=== PATIENT | male | born 1985 | race Caucasian/White ===

== ENCOUNTER 2017-05-26 20:30 | Emergency (ER) | payer SELFPAY ==
[~2017-05-26] VITALS: Ht 175.3 cm; Wt 97.0 kg
[2017-05-26 20:33] VITALS: BP 127/83; PULSE 88; RESP 16; TEMP 98.3; O2SAT 98
[2017-05-26 22:57] VITALS: BP 122/88; PULSE 83; RESP 18; O2SAT 100
[2017-05-26] MEDS ORDERED: SODIUM CHLOR 0.9% 1000 ML INJ 1,000 ML IV ONE (23:15)
[2017-05-26] MEDS ORDERED: ONDANSETRON HCL 4 MG/2 ML VIAL IV ONE (23:15)
[2017-05-26 23:45] LABS: AUTOMATED NEUTROPHIL # 4.1 TH/MM3 (1.8-7.7); BASOPHIL # 0.1 TH/MM3 (0-0.2); BASOPHIL % 1.2 % (0.0-2.0); EOSINOPHIL # 0.2 TH/MM3 (0-0.4); EOSINOPHIL % 2.1 % (0.0-4.0); HEMATOCRIT 48.9 % (39.0-51.0); HEMO FLAGS DIFF FINAL; LYMPH % 43.7 % (9.0-44.0); LYMPHOCYTE # 3.8 TH/MM3 (1.0-4.8); MEAN CELL VOLUME 83.6 FL (80.0-100.0); MEAN CORPUSCULAR HEMOGLOBIN 28.1 PG (27.0-34.0); MEAN CORPUSCULAR HGB CONC 33.6 % (32.0-36.0); MONO % 5.6 % (0.0-8.0); NEUT % 47.4 % (16.0-70.0); PLATELET COUNT 221 TH/MM3 (150-450); RED BLOOD COUNT 5.86 MIL/MM3 (4.50-5.90); RED CELL DISTRIBUTION WIDTH 13.3 % (11.6-17.2); WHITE BLOOD COUNT 8.6 TH/MM3 (4.0-11.0)
--- NOTE | 2017-05-26 23:52 | PD ---
HPI Chief Complaint: GI Complaint Time Seen by Provider: 22:56 Travel History International Travel<30 days: No Contact w/Intl Traveler<30days: No Traveled to known affect area: No History of Present Illness HPI The patient is a 31 year old male who presents to the [facility] emergency department with a history of 8 days of loose stool associated with blood in his stool. The patient reports that he has lower abdominal cramping. He reports that the pain is worse with moving his bowels. He reports that he has been eating less food because of this. He reports having nausea with occasional dry heaves. He reports that he previously weighed 225 pounds and now is down to 219 pounds. He denies ever having symptoms like this previously. He reports that he is moving his bowels approximately 5-6 times per day. He denies having any digestion or heartburn associated with this. He reports that because of this pain he has been taking ibuprofen 200 mg tablets 2 tablets 4 times a day. He denies taking any other [id number] medications prior to the onset of the symptoms. The patient reports that he does have a history of problems with constipation. He denies having any family history of colon cancer or bowel disease. He reports that over the last 2 days he began to have dizziness with lightheaded sensation. Otherwise on review of systems, he denies having any recent fevers, cough, congestion, neck pain, chest pain, shortness of breath, urinary symptoms, or other neurologic symptoms. The patient denies any antibiotic use in the last 3 months. The patient denies having any known sick contacts or unusual food intake. The patient denies any foreign travel or recent camping. The patient denies having anal sex or using any toys anally. COUNT INCLUDES THE [facility] Past Medical History Narrative Medical The patient's past medical history is significant for tuberculosis found to be in an inactive state in [id number] treated with 9 months of medication. Diminished Hearing: No Respiratory: Yes (TB) Immunizations Current: Yes Past Surgical History Narrative Surgical The patient's past surgical history is reportedly none. Surgical History: No Previous Surgery Social History Alcohol Use: No Tobacco Use: Yes (1PPD) Substance Use: No Allergies-Medications (Allergen,Severity, Reaction): Coded Allergies: No Known Allergies (Unverified , 05/26/17) Reported Meds & Prescriptions Reported Meds & Active Scripts Active Flagyl (Metronidazole) 500 Mg Tab 500 Mg PO TID 7 Days Ciprofloxacin (Ciprofloxacin HCl) 500 Mg Tab 500 Mg PO BID Review of Systems Except as stated in HPI: all other systems reviewed are Neg General / Constitutional: No: Fever Eyes: No: Visual changes HENT: No: Headaches Cardiovascular: No: Chest Pain or Discomfort Respiratory: No: Shortness of Breath Gastrointestinal: Positive: Nausea, Vomiting, Diarrhea, Abdominal Pain, Hematochezia, Changes in Bowel Habits, Loss of Appetite, No: Hematemesis, Indigestion Genitourinary: No: Dysuria Musculoskeletal: No: Pain Skin: No Rash Neurologic: No: Weakness Psychiatric: No: Depression Endocrine: No: Polydipsia Hematologic/Lymphatic: No: Easy Bruising Physical Exam Narrative General: The patient is a well-developed well-nourished male in no acute distress Head and Neck exam: Head is normocephalic atraumatic. Eyes: EOMI, pupils are equal round and reactive to light. Nose: Midline septum with pink mucous membranes Mouth: Dentition unremarkable. Moist mucus membranes. Posterior oropharynx is not erythematous. No tonsillar hypertrophy. Uvula midline. Airway patent. Neck: No palpable lymphadenopathy. No nuchal rigidity. No thyromegaly. Cardiovascular: Regular rate and rhythm without murmurs, gallops, or rubs. Lungs: Clear to auscultation bilaterally. No wheezes, rhonchi, or rales. Abdomen: Soft, with tenderness on palpation overlying the suprapubic area and bilateral lower quadrants of the abdomen, left compared to the right. No specific point tenderness on palpation over McBurney's point. No guarding, rebound, or rigidity. Negative Gutierrez's sign. Normal bowel sounds are audible. Extremities: No clubbing, cyanosis, or edema. 2+ pulses in all 4 extremities. No calf tenderness on palpation. Back: No spinous process tenderness to palpation. No costovertebral angle tenderness to palpation. Neurologic Exam: Grossly nonfocal. Skin Exam: No rash noted. Intact skin that is warm and dry. RECTAL EXAM: No masses or tenderness, stool is brown. The patient's stool was Hemoccult negative. No anal fissures or hemorrhoids are visualized. Data Data Last Documented VS Vital Signs Date Time Temp Pulse Resp B/P (MAP) Pulse Ox O2 Delivery O2 Flow Rate FiO2 10/24/17 22:57 83 18 122/88 (99) 100 Room Air 05/26/17 20:33 98.3 Orders Orders Complete Blood Count With Diff (05/26/17 23:06) Comprehensive Metabolic Panel (05/26/17 23:06) Prothrombin Time / Inr (Pt) (05/26/17 23:06) Act Partial Throm Time (Ptt) (05/26/17 23:06) Lipase (05/26/17 23:06) Urinalysis - C+S If Indicated (05/26/17 23:06) Westergren Sedimentation Rate (05/26/17 23:06) Magnesium (Mg) (05/26/17 23:06) Enteric Path (Stool) (05/26/17 23:06) C Diff Toxin Pcr (05/26/17 23:06) Ct Abd/Pel W Iv Contrast(Rout) (05/26/17 23:06) Iv Access Insert/Monitor (05/26/17 23:06) Ecg Monitoring (05/26/17 23:) Oximetry (05/26/17 23:06) Type And Screen (05/26/17 23:06) Stool Wbc (Leukocytes) (05/26/17 23:06) Sodium Chlor 0.9% 1000 Ml Inj (Ns 1000 M (05/26/17 23:15) Ondansetron Inj (Zofran Inj) (05/26/17 23:15) Iohexol 350 Inj (Omnipaque 350 Inj) (05/27/17 00:18) Metronidazole (Flagyl) (05/27/17 01:15) Ed Discharge Order (05/27/17 01:33) Labs Laboratory Tests Test 05/26/17 23:15 05/27/17 00:00 White Blood Count 8.6 TH/MM3 Red Blood Count 5.86 MIL/MM3 Hemoglobin 16.4 GM/DL Hematocrit 48.9 % Mean Corpuscular Volume 83.6 FL Mean Corpuscular Hemoglobin 28.1 PG Mean Corpuscular Hemoglobin Concent 33.6 % Red Cell Distribution Width 13.3 % Platelet Count 221 TH/MM3 Mean Platelet Volume 8.2 FL Neutrophils (%) (Auto) 47.4 % Lymphocytes (%) (Auto) 43.7 % Monocytes (%) (Auto) 5.6 % Eosinophils (%) (Auto) 2.1 % Basophils (%) (Auto) 1.2 % Neutrophils # (Auto) 4.1 TH/MM3 Lymphocytes # (Auto) 3.8 TH/MM3 Monocytes # (Auto) 0.5 TH/MM3 Eosinophils # (Auto) 0.2 TH/MM3 Basophils # (Auto) 0.1 TH/MM3 CBC Comment DIFF FINAL Differential Comment Erythrocyte Sedimentation Rate 1 mm/hr Prothrombin Time 10.0 SEC Prothromb Time International Ratio 0.9 RATIO Activated Partial Thromboplast Time 23.0 SEC Blood Urea Nitrogen 13 MG/DL Creatinine 0.87 MG/DL Random Glucose 83 MG/DL Total Protein 6.3 GM/DL Albumin 3.4 GM/DL Calcium Level 8.7 MG/DL Magnesium Level 2.0 MG/DL Alkaline Phosphatase 74 U/L Aspartate Amino Transf (AST/SGOT) 14 U/L Alanine Aminotransferase (ALT/SGPT) 25 U/L Total Bilirubin 0.3 MG/DL Sodium Level 140 MEQ/L Potassium Level 4.2 MEQ/L Chloride Level 106 MEQ/L Carbon Dioxide Level 27.8 MEQ/L Anion Gap 6 MEQ/L Estimat Glomerular Filtration Rate 102 ML/MIN Lipase 105 U/L Urine Color LIGHT-YELLOW Urine Turbidity CLEAR Urine pH 5.0 Urine Specific [place] 1.014 Urine Protein NEG mg/dL Urine Glucose (UA) NEG mg/dL Urine Ketones NEG mg/dL Urine Occult Blood NEG Urine Nitrite NEG Urine Bilirubin NEG Urine Urobilinogen LESS THAN 2.0 MG/DL Urine Leukocyte Esterase NEG Urine WBC 1 /hpf Urine Mucus FEW /lpf Microscopic Urinalysis Comment CULT NOT INDICATED MDM Medical Decision Making Medical Screen Exam Complete: Yes Emergency Medical Condition: Yes Medical Record Reviewed: Yes Interpretation(s) Last Impressions Abdomen/Pelvis CT 05/26/17 5642 Signed Impressions: Service Date/Time: Saturday, May 27, 2017 00:12 - CONCLUSION: 1. Eccentric wall thickening of the rectum. Digital rectal exam recommended. 2. The remainder the abdomen/pelvis is otherwise unremarkable. Samuel Oliveira MD Differential Diagnosis Colitis, versus bacterial gastroenteritis, versus inflammatory bowel disease, versus hemorrhoid, versus anal fissure Narrative Course During the course of the patients emergency department visit, the patients history, examination, and differential diagnosis were reviewed with the patient. The patient was placed on a organizational effectiveness consultant with oximetry and frequent blood pressure monitoring. The patient had IV access obtained and blood work sent for analysis. The patient was initially provided normal saline 1 L IV fluid bolus, Zofran 4 mg IV. The patient was given Flagyl 500 mg by mouth after CT scan revealed evidence of rectal inflammation The patients laboratory studies were reviewed and remarkable for CBC within normal limits, sedimentation rate 1. CMP is remarkable for an AST of 14, total protein 6.3, lipase 105, PT 10, PTT 23, urinalysis unremarkable. Radiology studies were reviewed and remarkable for a CT scan of the abdomen pelvis that shows a central wall thickening of the rectum. The remainder of the abdomen and pelvis was otherwise unremarkable. The patient will be discharged home with a prescription for antibiotics to include Cipro and Flagyl. The patient was given the name of the monogram technician on-call for follow-up, . The patient is resting comfortably and feels better, is alert and in no distress. The patients results and examination findings were discussed with the patient. The repeat examination is unremarkable and benign. The history, exam, diagnostic testing, and current condition do not suggest any significant pathology to warrant further testing, continued ED treatment, admission, or surgical evaluation at this point. The vital signs have been stable. The patient does not have uncontrollable pain, intractable vomiting, or other significant symptoms. The patient's condition is stable and appropriate for discharge. The patient will pursue further outpatient evaluation with a primary care physician or other designated or consulting physician as indicated in the discharge instructions. The patient expressed understanding and was agreeable with this plan. [facility] Point of Care Internal Pos. & Neg. Controls: Passed Fecal Specimen Occult Blood: Negative Diagnosis Primary Impression: Prostatitis Qualified Codes: N41.0 - Acute prostatitis Referrals: Juan Pablo Moreira MD 2 weeks Patient Instructions: General Instructions, Prostatitis (ED) Med/Other Pt SpecificInfo: Prescription(s) given Scripts Metronidazole (Flagyl) 500 Mg Tab 500 MG PO TID for Infection for 7 Days, TAB 0 Refills Prov: Randa Altamirano MD 05/27/17 Ciprofloxacin (Ciprofloxacin) 500 Mg Tab 500 MG PO BID for Infection, #20 TAB 0 Refills Prov: Randa Altamirano MD 05/27/17 Disposition: 01 DISCHARGE HOME Condition: Stable Randa Altamirano MD May 26, 2017 23:52
[2017-05-26 23:56] LABS: INTERNATIONAL NORMALIZED RATIO 0.9 RATIO
[2017-05-26 23:58] LABS: ANION GAP 6 MEQ/L (5-15); AST (GOT) 14 U/L (15-37); BICARBONATE 27.8 MEQ/L (21.0-32.0); BLOOD UREA NITROGEN 13 MG/DL (7-18); CHLORIDE 106 MEQ/L (98-107); GLOMERULAR FILTRATION RATE 102 ML/MIN (>89); POTASSIUM 4.2 MEQ/L (3.5-5.1); SODIUM (NA) 140 MEQ/L (136-145)
[2017-05-26 23:59] LABS: ALT (GPT) 25 U/L (12-78)
[2017-05-27 00:01] LABS: ALKALINE PHOSPHATASE 74 U/L (45-117); TOTAL BILIRUBIN ADULT 0.3 MG/DL (0.2-1.0)
[2017-05-27] MEDS ORDERED: IOHEXOL 350 MG/ML 10 ML VIAL (for RAD DIAG) IVCONTRAST ONE (00:18)
--- NOTE | 2017-05-27 00:28 | RADRPT ---
EXAM DATE/TIME: 05/27/2017 00:12 [place] COMPARISON: No previous studies available for comparison. INDICATIONS : Abdomen pain with blood in stool past 8 days. IV CONTRAST: 97 cc Omnipaque 350 (iohexol) IV ORAL CONTRAST: No oral contrast ingested. RADIATION DOSE: 15.28 CTDIvol (mGy) MEDICAL HISTORY : TB SURGICAL HISTORY : None. ENCOUNTER: Initial ACUITY: 1 day PAIN SCALE: 5/10 LOCATION: abdomen TECHNIQUE: Volumetric scanning of the abdomen and pelvis was performed. Using automated exposure control and ad justment of the mA and/or kV according to patient size, radiation dose was kept as low as reasonably achievable to obtain optimal diagnostic quality images. DICOM format image data is available electro nically for review and comparison. FINDINGS: LOWER LUNGS: The visualized lower lungs are clear. LIVER: Homogeneous density without lesion. There is no dilation of the biliary tree. No calcified gallston es. SPLEEN: Normal size without lesion. PANCREAS: Within normal limits. KIDNEYS: Normal in size and shape. There is no mass, stone or hydronephrosis. ADRENAL GLANDS: Within normal limits. VASCULAR: There is no aortic aneurysm. BOWEL/MESENTERY: Questionable eccentric wall thickening in the rectum.. There is no free intraperitoneal air or fluid . ABDOMINAL WALL: Within normal limits. RETROPERITONEUM: There is no lymphadenopathy. BLADDER: No wall thickening or mass. REPRODUCTIVE: Within normal limits. INGUINAL: There is no lymphadenopathy or hernia. MUSCULOSKELETAL: Within normal limits for patient age. CONCLUSION: 1. Eccentric wall thickening of the rectum. Digital rectal exam recommended. 2. The remainder the abdomen/pelvis is otherwise unremarkable. Samuel Oliveira MD on May 27, 2017 at 0:23 Board Certified Radiologist. This report was verified electronically.
[2017-05-27 00:40] LABS: BLOOD, URINE NEG (NEG); COMMENT (UR) CULT NOT INDICATED; CULTURE IF INDICATED CULT NOT INDICATED; GLUCOSE,URINE NEG (NEG); KETONE, URINE NEG (NEG); MUCUS URINE FEW /lpf (OCC); NITRITE,URINE NEG (NEG); URINE COLOR LIGHT-YELLOW (YELLW/STRAW)
[2017-05-27] MEDS ORDERED: metroNIDAZOLE 500 MG TAB PO ONE (01:15)
[2017-05-27] MEDS ORDERED: METR-1 PO (01:41)
[2017-05-27] MEDS ORDERED: CIPR500T2 PO (01:41)
[2017-05-27 01:45] VITALS: BP_SYST 120; BP_SYST 144; BP_DIAS 70; BP_DIAS 96; PULSE 70; PULSE 76; RESP 18; O2SAT 100; O2SAT 98
== END 2017-05-27 01:54 | disposition home or self-care (01) ==
LOC: NEPC 20:30
DX: N41.9 Inflammatory disease of prostate, unspecified (principal); R11.2 Nausea with vomiting, unspecified; R19.7 Diarrhea, unspecified; R42 Dizziness and giddiness; F17.200 Nicotine dependence, unspecified, uncomplicated; Z86.11 Personal history of tuberculosis
CPT/HCPCS: 74177; 80053; 81001; 83690; 83735; 85025; 85610; 85652; 85730; 86850; 86900; 86901; 96361; 96374; 99285; J2405; J7030; Q9967